=== PATIENT | female | born 1980 | race Caucasian/White ===

== ENCOUNTER 2018-09-04 20:12 | Emergency (ER) | payer OTHER, MEDICAID ==
[~2018-09-04] VITALS: Ht 154.9 cm; Wt 52.2 kg
[~2018-09-04 20:12] MED LIST: ADDERALL 30 MG30 MG PO; ALPRAZOLAM ER2 MG PO; BUPRENORPHINE HC8 MG SL; IBUPROFEN 800800 M1 PO; NORCO 5-325 TA1 EACH PO; TRINATE TABLET1 TAB PO
[2018-09-04] MEDS ORDERED: KEFLEX500 M1 PO (20:27)
[2018-09-04] MEDS ORDERED: ACETAMINOPHEN-1 EAC1 PO (20:27)
[2018-09-04] MEDS ORDERED: LIDOCAINE VISC100 ML SWISH&SPIT (20:27)
[2018-09-04 20:38] VITALS: BP 122/88
== END 2018-09-04 20:43 | disposition home or self-care (01) ==
LOC: M.ERS 20:12
DX: K02.9 Dental caries, unspecified (principal); F41.9 Anxiety disorder, unspecified; F17.210 Nicotine dependence, cigarettes, uncomplicated

== ENCOUNTER 2018-11-04 12:18 | Emergency (ER) | payer OTHER ==
[~2018-11-04] VITALS: Ht 154.9 cm; Wt 49.9 kg
[~2018-11-04 12:18] MED LIST changes: +ACETAMINOPHEN-1 EAC1 PO; +KEFLEX500 M1 PO; +LIDOCAINE VISC100 ML SWISH&SPIT
[2018-11-04 12:52] LABS: ABSOLUTE BASOPHILS 0.1 thou/uL (0.0-0.2); ABSOLUTE LYMPHOCYTES 1.2 thou/uL (0.8-5.3); ABSOLUTE MONOCYTES 1.5 thou/uL (0.0-1.2); BASOPHILS 0.3 %; EOSINOPHILS 0.1 %; HEMATOCRIT 41.2 % (37.0-47.0); HEMOGLOBIN 13.8 gm/dL (12.0-15.0); LYMPHOCYTES 7.7 %; MCH 30.7 pg (26.0-34.0); MCHC 33.4 g/dL (28.0-37.0); MCV 91.9 fL (80.0-100.0); MONOCYTES 9.4 %; MPV 6.6 fl. (7.2-11.1); NUCLEATED RBCS 0 /100WBC; PLATELET COUNT* 607 thou/uL (150-400); POLYS 82.5 %; RBC 4.48 mil/uL (4.20-5.00); RDW-CV 13.3 % (10.5-14.5); WBC 15.8 thou/uL (4.0-11.0)
[2018-11-04 13:12] LABS: CREATININE 1.1 mg/dL (0.6-1.3); POTASSIUM 3.6 mmol/L (3.5-5.1)
[2018-11-04 13:17] LABS: ALBUMIN 2.2 g/dL (3.4-5.0); TOTAL BILIRUBIN 0.6 mg/dL (<0.1-1.0); TOTAL PROTEIN 7.1 g/dL (6.4-8.2)
[2018-11-04 14:23] LABS: URINE BILIRUBIN NEGATIVE (Negative); URINE BLOOD NEGATIVE (Negative); URINE CLARITY CLEAR; URINE COLOR YELLOW; URINE GLUCOSE-RANDOM NEGATIVE (Negative); URINE KETONES NEGATIVE (Negative); URINE LEUKOCYTES-REFLEX NEGATIVE (Negative); URINE NITRITE-REFLEX NEGATIVE (Negative); URINE PROTEIN TRACE (Negative); URINE UROBILINOGEN 0.2 E.U./dl (0.2-1.0)
[2018-11-04] MEDS ORDERED: CIPROFLOXACIN500 M1 PO (15:06)
[2018-11-04] MEDS ORDERED: ZOFRAN ODT4 MG SUBLING (15:06)
[2018-11-04] MEDS ORDERED: FLAGYL500 M1 PO (15:06)
[2018-11-04 15:15] LABS: AMP/METHAMP POSITIVE (Negative); BARBITURATES Negative (Negative); BENZODIAZEPINES POSITIVE (Negative); COCAINE Negative (Negative); METHADONE Negative (Negative); OPIATES POSITIVE (Negative); PCP Negative (Negative); THC POSITIVE (Negative)
[2018-11-04 15:24] VITALS: BP 100/60
--- NOTE | 2018-11-08 12:46 | EKG ---
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1980 Requested By: Robert Blevins Order Number: [id number] MD: Akbar Jimenez Measurements Intervals [place] Rate: 94 P: 66 AR: 129 QRS: 66 QRSD: 104 T: 53 QT: 380 QTc: 476 Interpretive Statements Sinus rhythm RSR' in V1 or V2, probably normal variant Compared to ECG 06/15/2014 08:49:48 Sinus tachycardia no longer present Electronically Signed On 11-08-2018 12:46:03 CDT by Akbar Jimenez [email or web address] <ELECTRONICALLY SIGNED> By: Akbar Jimenez MD, [facility] 11/08/18 1246 1403 140 Akbar Jimenez MD, [facility] /EPI
== END 2018-11-04 15:25 | disposition home or self-care (01) ==
LOC: M.ERS 12:18
PROVIDERS: Family Medicine
DX: E86.0 Dehydration (principal); R19.7 Diarrhea, unspecified; F41.9 Anxiety disorder, unspecified; F17.210 Nicotine dependence, cigarettes, uncomplicated; Z79.899 Other long term (current) drug therapy